=== PATIENT | female | born 1995 | race Two or more races ===

== ENCOUNTER 2018-09-16 19:40 | Emergency (ER) | payer MEDICAID, OTHER ==
[~2018-09-16] VITALS: Ht 170.2 cm; Wt 81.6 kg
[~2018-09-16 19:40] MED LIST: ALBUTEROL SULF8.5 GM INH; BENADRYL25 MG ORAL; CIPROFLOXACIN500 M2 ORAL; IBUPROFEN400 MG ORAL; IBUPROFEN600 MG ORAL; NKM; PREDNISONE20 MG ORAL; ZANTAC150 MG ORAL
--- NOTE | 2018-09-16 20:02 | NUR ---
ED Nurse Note: Pt arrived ED from home, c/o right ankle pain 9/10 and swollen 2+ after fell and twisted her right ankle today. Pt is A/O X 4. Vital signs stable at this time, waiting for orders.
[2018-09-16] MEDS ORDERED: NKM (20:14)
[2018-09-16] MEDS ORDERED: HYDROcodone/Acetamin 5/325 tab ORAL ONE (20:45)
--- NOTE | 2018-09-16 21:12 | NUR ---
ED Nurse Note: Meds given as ordered.
--- NOTE | 2018-09-16 21:21 | Emergency Room Report ---
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 She reports pain exacerbated upon attempts to weight bear or ambulate as well as with palpation. Denies hitting her head or having midline neck or back pain. pt. denies pain / injury elsewhere on the body. she reports swelling and some bruising. no open wounds, abrasions or bleeding. Denies numbness tingling or loss of sensation or gross motor movements of the extremities, incontinence of bowel or bladder. Denies CP, Palpitations, LOC, AMS, dizziness, Changes in Vision, weakness or a sudden severe headache. Allergies: Coded Allergies: No Known Allergies (Unverified , 09/07/13) Patient History Past Medical History: see triage record Past Surgical History: none Pertinent Family History: none Last Menstrual Period: 09/03/18 Now: No Reviewed Nursing Documentation: PMH: Agreed; PSxH: Agreed Nursing Documentation-PMH Past Medical History: No History, Except For Hx Asthma: Yes Review of Systems All Other Systems: negative except mentioned in HPI Physical Exam Vital Signs Date Time Temp Pulse Resp B/P (MAP) Pulse Ox O2 Delivery O2 Flow Rate FiO2 09/16/18 19:40 98.8 75 18 95 Room Air Sp02 EP Interpretation: reviewed, normal General Appearance: alert, GCS 15, non-toxic, mild distress Head: normocephalic, atraumatic Eyes: bilateral eye normal inspection, bilateral eye PERRL ENT: hearing grossly normal, normal voice Neck: full range of motion Respiratory: chest non-tender, lungs clear, normal breath sounds, speaking full sentences Cardiovascular #1: regular rate, rhythm, normal capillary refill Cardiovascular #2: 2+ dorsalis pedis (R) Musculoskeletal: back normal, normal range of motion, swelling - lateral aspect of the right foot and ankle. , other - pt using crutches, tender - lateral aspect of the right foot and ankle Neurologic: alert, oriented x3, responsive, motor strength/tone normal, sensory intact, speech normal, grossly normal Psychiatric: judgement/insight normal Skin: no rash, warm/dry, well hydrated, other - bruising noted to lateral right ankle/foot region. Medical Decision Making PA Attestation Dr. Greene is my supervising Physician whom patient management has been discussed with. 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 She reports pain exacerbated upon attempts to weight bear or ambulate as well as with palpation. Denies hitting her head or having midline neck or back pain. pt. denies pain / injury elsewhere on the body. she reports swelling and some bruising. no open wounds, abrasions or bleeding. Denies numbness tingling or loss of sensation or gross motor movements of the extremities, incontinence of bowel or bladder. Denies CP, Palpitations, LOC, AMS, dizziness, Changes in Vision, weakness or a sudden severe headache. Ddx considered but are not limited to Fracture, dislocation, contusion, Sprain/ Strain/Spasm. Vital signs: are WNL, pt. is afebrile H&PE are most consistent with musculoskeletal injury will perform imaging to r/ o fractures/dislocations. ORDERS: - X-ray RIGHT FOOT and ANKLE 3 VIEWS each - Questionable mild avulsion fracture. Negative for Dislocation, or significant soft tissue injury, per preliminary read in ED, and signed by DAVIDSON Samayoa, my supervising physician has reviewed, and agrees with my interpretation. ED INTERVENTIONS: - Milldale PO -Right stirrup air splint applied by instructor technical training. Pt. remains neurovascularly intact. -Patient is provided with crutches and instructed on their use DISCHARGE: At this time pt. is stable for d/c to home. Will provide printed patient care instructions, and any necessary prescriptions. Care plan and follow up instructions have been discussed with the patient prior to discharge. Other X-Ray Diagnostic Results Other X-Ray Diagnostic Results #1: X-Ray ordered: Right Ankle # of Views/Limited Vs Complete: 3 View Indication: Swelling EP Interpretation: Yes DAVIDSON Xray: Interpretation reviewed, by supervising MD, and agrees with findings. Interpretation: no dislocation, other - Questionable mild avulsion fracture. , soft tissue swelling noted. Impression: Other - abnormal Electronically Signed by: Joan Samayoa PA-C Other X-Ray Diagnostic Results #2: X-Ray ordered: Right Foot # of Views/Limited Vs Complete: 3 View Indication: Pain EP Interpretation: Yes DAVIDSON Xray: Interpretation reviewed, by supervising MD, and agrees with findings. Interpretation: no dislocation, other - Soft tissue swelling. Impression: Other - abnormal Electronically Signed by: Joan Samayoa PA-c Last Vital Signs Date Time Temp Pulse Resp B/P (MAP) Pulse Ox O2 Delivery O2 Flow Rate FiO2 09/16/18 19:40 98.8 75 18 95 Room Air Status: improved Disposition: HOME, SELF-CARE Condition: Stable Scripts Ibuprofen* (MOTRIN*) 600 Mg Tablet 600 MG ORAL THREE TIMES A DAY, #30 TAB 0 Refills Prov: Joan Samayoa 09/16/18 Hydrocodone Bit/Acetaminophen 5-325* (NORCO 5-325*) 1 Each Tablet 1 TAB ORAL Q6H PRN for For Pain, #10 TAB 0 Refills Prov: Joan Samayoa 09/16/18 Referrals: [facility] Patient Instructions: Avulsion Fracture of the Foot Additional Instructions: Take medications as directed. Follow up with an SOLAR PROCESS ENGINEER in 3-5 days, even if your symptoms have resolved. --Please review list of primary care clinics, if you do not already have a primary care provider who can give you an Orthopedic Referral. Return sooner to ED if new symptoms occur, or current symptoms become worse. Do not drink alcohol, drive, or operate heavy machinery while taking Milldale as this may cause drowsiness. - Please note that this Emergency Department Report was dictated using [employer] software engineer technology software, occasionally this can lead to erroneous entry secondary to interpretation by the dictation equipment. Jona Samayoa September 16, 2018 21:21
[2018-09-16] MEDS ORDERED: IBUPROFEN600 MG ORAL (21:22)
[2018-09-16] MEDS ORDERED: NORCO 5-325 TA1 EACH ORAL (21:22)
[2018-09-16 21:35] VITALS: BP 143/81
--- NOTE | 2018-09-16 21:35 | NUR ---
D/cER DISCHARGE NOTE: Patient is cleared to be discharged per Yao Franco/DAVIDSON. X-ray done, meds given as ordered. Pt is aox4 on room air with stable vital signs. Pt was given dc and prescription instructions and was able to verbalize understanding. Pt's ID band removed. pt is able to ambulate well with crutches which was brought from home by herself and took all belongings.
--- NOTE | 2018-09-17 10:58 | Diagnostic Imaging Report ---
Indication: Pain right ankle trauma Comparison: None Findings: 3 views of the right ankle obtained. No acute fracture, malalignment, periostitis, or osteochondral defects are identified. Small well-corticated ossicles adjacent to the inferior aspect of the lateral malleolus noted. There is mild soft tissue swelling. Impression: Negative for acute injury
--- NOTE | 2018-09-17 10:59 | Diagnostic Imaging Report ---
Indication: Foot Pain Comparison: None Findings: 3 views of the right foot were obtained. No acute fractures, malalignment, erosions or periostitis are identified. Soft tissues are unremarkable. Impression: No acute findings.
== END 2018-09-16 21:35 | disposition home or self-care (01) ==
LOC: EMR 20:22
DX: S82.891A Other fracture of right lower leg, initial encounter for closed fracture (principal); V00.131A Fall from skateboard, initial encounter; Y92.9 Unspecified place or not applicable
CPT/HCPCS: 99283